=== PATIENT | female | born 1950 | race Caucasian/White ===

== ENCOUNTER 2023-12-15 17:39 | Inpatient (IN) | payer BC, MEDICARE ==
[~2023-12-15] VITALS: Ht 165.1 cm; Wt 70.8 kg
[2023-12-15] MEDS: NS 500 ML IV ONE (18:05)
[2023-12-15] MEDS: ONDANSETRON 4MG 2ML VIAL IV ONE (18:11)
[2023-12-15] MEDS: MORPHINE 4 MG/ML 1ML VIAL IV ONE ×2 (18:11→20:31)
[2023-12-15] MEDS: NS 1,000 ML IV SCH (18:12)
[2023-12-15] MEDS ORDERED: ISOVUE-370 76% 100ML VIAL As Ordered ONE (18:12)
[2023-12-15 18:28] LABS: BASO # 0.1 10^3/uL (0.0-0.2); BASO % 0.8 % (0.0-1.0); EOS # 0.1 10^3/uL (0.0-0.5); EOS % 1.4 % (0.0-3.0); HEMATOCRIT 43.5 % (36.0-47.0); HEMOGLOBIN 15.5 g/dl (12.0-15.5); LYMPH # 3.2 10^3/uL (1.5-5.0); LYMPH % 36.7 % (24.0-44.0); MEAN CORPUSCULAR HEMOGLOBIN 33.3 pg (27.0-33.0); MEAN CORPUSCULAR HGB CONC 35.6 g/dl (32.0-36.5); MEAN CORPUSCULAR VOLUME 93.5 fl (80.0-96.0); MONO # 0.6 10^3/uL (0.0-0.8); MONO % 6.8 % (2.0-8.0); NEUTROPHILS # 4.6 10^3/uL (1.5-8.5); NEUTROPHILS % 53.5 % (36.0-66.0); PLATELET COUNT, AUTOMATED 265 10^3/uL (150-450); RED BLOOD COUNT 4.65 10^6/uL (4.00-5.40); WHITE BLOOD COUNT 8.6 10^3/uL (4.0-10.0)
[2023-12-15 18:37] LABS: CK-MB VALUE MASS < 1.0 NG/ML (<3.6); LIPASE 31 U/L (12-53)
[2023-12-15 18:39] LABS: ALBUMIN 3.8 G/DL (3.2-5.2); ALKALINE PHOSPHATASE 110 U/L (46-116); ALT/SGPT 37 U/L (7.0-40); AST/SGOT 22 U/L (<34); BILIRUBIN,DIRECT 0.3 MG/DL (<0.4); BILIRUBIN,TOTAL 1.4 MG/DL (0.3-1.2); CPK CREATINE PHOSPHOKINASE 131 U/L (34-145); MB/CK RELATIVE INDEX 0.76 (< OR =4); TOTAL PROTEIN 6.9 G/DL (5.7-8.2)
[2023-12-15 18:51] LABS: INR 0.98; PROTHROMBIN TIME 12.7 SECONDS (12.5-14.5)
[2023-12-15] MEDS ORDERED: HOME MED LIST COMPLETE! XX SCH (20:25)
[2023-12-15] MEDS: PIPERACILLIN/TAZOBACTAM SOD 3.375 GM in D5W MINI-BAG PLUS 50 ML IV ONE (20:31)
[2023-12-15] MEDS: NS 1,000 ML IV ONE (20:31)
[2023-12-15 21:21] LABS: RSV AMPLIFICATION NEGATIVE (NEGATIVE)
[2023-12-15 21:45] LABS: BLOOD UREA NITROGEN 11 MG/DL (9-23); CARBON DIOXIDE LEVEL 23 MMOL/L (20-31); CHLORIDE LEVEL 103 MMOL/L (98-107); CREATININE FOR GFR 0.76 MG/DL (0.55-1.30); GLOMERULAR FILTRATION RATE > 60.0 (>39); GLUCOSE, FASTING 147 MG/DL (74-106); POTASSIUM SERUM 3.5 MMOL/L (3.5-5.1); SODIUM LEVEL 138 MMOL/L (136-145)
[2023-12-15] MEDS ORDERED: MORPHINE 2 MG/ML 1ML VIAL IV PRN ×2 (21:55)
[2023-12-15] MEDS ORDERED: ONDANSETRON 4MG 2ML VIAL IV PRN (21:55)
[2023-12-15] MEDS: PANTOPRAZOLE 40MG VIAL IV SCH (23:19)
[2023-12-15] MEDS: LR 1,000 ML IV SCH (23:19)
[2023-12-15 23:20] VITALS: BP 135/88; TEMP 96.8; O2SAT 95
[2023-12-15 23:37] VITALS: BP 128/88
[2023-12-16] MEDS: MULTIVITAMIN -ADULT INJECTION 10 ML, THIAMINE INJection 100 MG, FOLIC ACID 1 MG in NS 1... IV ONE (00:24)
[2023-12-16] MEDS: MAG SULF 1GM/100ML (MAG RUN) 1 GM in IV 1 EA IV ONE (02:03)
[2023-12-16] MEDS: PIPERACILLIN/TAZOBACTAM SOD 3.375 GM in D5W MINI-BAG PLUS 50 ML IV SCH (03:11)
[2023-12-16 04:47] VITALS: BP 124/80; TEMP 97.7; O2SAT 93
[2023-12-16 05:57] LABS: HEMOGLOBIN A1c 4.9 % (4.0-6.0)
[2023-12-16 05:58] LABS: HEMATOCRIT 37.9 % (36.0-47.0); MEAN CORPUSCULAR HEMOGLOBIN 33.2 pg (27.0-33.0); MEAN CORPUSCULAR HGB CONC 35.1 g/dl (32.0-36.5); MEAN CORPUSCULAR VOLUME 94.5 fl (80.0-96.0); PLATELET COUNT, AUTOMATED 212 10^3/uL (150-450); RED BLOOD COUNT 4.01 10^6/uL (4.00-5.40); WHITE BLOOD COUNT 7.4 10^3/uL (4.0-10.0)
[2023-12-16 06:00] VITALS: BP 124/80
[2023-12-16 06:02] LABS: HEMOGLOBIN 13.3 g/dl (12.0-15.5)
[2023-12-16 06:12] LABS: THYROXINE (T4) 4.2 UG/DL (4.5-10.9)
[2023-12-16 06:13] LABS: THYROID STIMULATING HORMONE 8.967 uIU/ML (0.55-4.78)
[2023-12-16 06:17] LABS: PROCALCITONIN <0.04 ng/ml
[2023-12-16 06:23] LABS: ALBUMIN 2.9 G/DL (3.2-5.2); ALKALINE PHOSPHATASE 76 U/L (46-116); ALT/SGPT 28 U/L (7.0-40); AST/SGOT 16 U/L (<34); BILIRUBIN,TOTAL 1.8 MG/DL (0.3-1.2); BLOOD UREA NITROGEN 9 MG/DL (9-23); CARBON DIOXIDE LEVEL 24 MMOL/L (20-31); CHLORIDE LEVEL 112 MMOL/L (98-107); CREATININE FOR GFR 0.72 MG/DL (0.55-1.30); GLOMERULAR FILTRATION RATE > 60.0 (>39); GLUCOSE, FASTING 113 MG/DL (74-106); MAGNESIUM LEVEL 2.3 MG/DL (1.8-2.4); POTASSIUM SERUM 3.9 MMOL/L (3.5-5.1); SODIUM LEVEL 140 MMOL/L (136-145); TOTAL PROTEIN 5.6 G/DL (5.7-8.2)
[2023-12-16 08:30] VITALS: BP 124/80
[2023-12-16] MEDS ORDERED: ENOXAPARIN 40MG/0.4ML SYRINGE (J1650 PER 10MG) SC SCH (09:00)
[2023-12-16] MEDS: ACETAMINOPHEN TAB 650MG DOSE (2X325MG) PO PRN (14:01)
[2023-12-16] MEDS ORDERED: CIPR-249 PO (14:59)
[2023-12-16] MEDS ORDERED: METR-265 PO (14:59)
[2023-12-16 16:45] LABS: FREE THYROXINE INDEX 1.6 % (1.3-4.8); T UPTAKE 38.4 % (22.5-37.0)
== END 2023-12-16 16:52 | disposition home or self-care (01) | DRG 392 ==
LOC: M ED 17:39 → M ED INP 21:41 → M MSPAV 23:11
PROVIDERS: ADMIT Family Medicine; ATTEND Internal Medicine Nephrology
DX: K52.9 Noninfective gastroenteritis and colitis, unspecified (principal); K56.609 Unspecified intestinal obstruction, unspecified as to partial versus complete obstruction; K76.0 Fatty (change of) liver, not elsewhere classified; E04.1 Nontoxic single thyroid nodule; I70.0 Atherosclerosis of aorta; K40.20 Bilateral inguinal hernia, without obstruction or gangrene, not specified as recurrent; M51.36 Other intervertebral disc degeneration, lumbar region; M16.0 Bilateral primary osteoarthritis of hip; A08.4 Viral intestinal infection, unspecified; K57.90 Diverticulosis of intestine, part unspecified, without perforation or abscess without bleeding

== ENCOUNTER 2024-06-19 13:53 | Inpatient (IN) | payer MEDICARE ==
[~2024-06-19] VITALS: Ht 167.6 cm; Wt 47.7 kg
[~2024-06-19 13:53] MED LIST: CIPR-249 PO; METR-265 PO
[2024-06-19] MEDS ORDERED: FLEEENE12 PR (14:01)
[2024-06-19 15:37] LABS: BASO % 0.3 % (0.0-1.0); EOS % 0.3 % (0.0-3.0); HEMATOCRIT 44.1 % (36.0-47.0); HEMOGLOBIN 15.3 g/dl (12.0-15.5); LYMPH # 1.4 10^3/uL (1.5-5.0); LYMPH % 10.1 % (24.0-44.0); MEAN CORPUSCULAR HEMOGLOBIN 32.8 pg (27.0-33.0); MEAN CORPUSCULAR HGB CONC 34.7 g/dl (32.0-36.5); MEAN CORPUSCULAR VOLUME 94.4 fl (80.0-96.0); MONO # 0.8 10^3/uL (0.0-0.8); MONO % 5.9 % (2.0-8.0); NEUTROPHILS # 11.4 10^3/uL (1.5-8.5); NEUTROPHILS % 82.9 % (36.0-66.0); PLATELET COUNT, AUTOMATED 237 10^3/uL (150-450); RED BLOOD COUNT 4.67 10^6/uL (4.00-5.40); WHITE BLOOD COUNT 13.8 10^3/uL (4.0-10.0)
[2024-06-19] MEDS ORDERED: ISOVUE-370 76% 100ML VIAL As Ordered ONE (15:48)
[2024-06-19] MEDS: MORPHINE 2 MG/ML 1ML VIAL IV ONE (15:52)
[2024-06-19] MEDS: ACETAMINOPHEN TAB 650MG DOSE (2X325MG) PO ONE (15:52)
[2024-06-19] MEDS: ONDANSETRON 4MG 2ML VIAL IV ONE (15:52)
[2024-06-19] MEDS: NS 1,000 ML IV ONE (15:52)
[2024-06-19 16:11] LABS: ALBUMIN 3.5 G/DL (3.2-5.2); BILIRUBIN,TOTAL 4.5 MG/DL (0.3-1.2); TOTAL PROTEIN 7.2 G/DL (5.7-8.2)
[2024-06-19] MEDS: PIPERACILLIN/TAZOBACTAM SOD 3.375 GM in D5W MINI-BAG PLUS 50 ML IV ONE (17:49)
[2024-06-19] MEDS: NS 1,000 ML IV SCH (18:25)
[2024-06-19 18:40] LABS: C REACTIVE PROTEIN QUANTITATIV 23.1 MG/DL (<1.0)
[2024-06-19 18:53] LABS: PROCALCITONIN 0.19 ng/ml
[2024-06-19] MEDS ORDERED: HOME MED LIST COMPLETE! XX SCH (18:55)
[2024-06-19] MEDS: KETOROLAC 30 MG/ML 1ML VIAL IV PRN (20:43)
[2024-06-19 21:30] VITALS: BP 105/75; TEMP 99.1; O2SAT 95
[2024-06-19 23:22] VITALS: O2SAT 95
[2024-06-20 00:30] VITALS: BP 107/74; TEMP 97.5; O2SAT 96
[2024-06-20] MEDS: PIPERACILLIN/TAZOBACTAM SOD 4.5 GM in D5W MINI-BAG PLUS 50 ML IV SCH (00:32)
[2024-06-20 03:59] VITALS: BP 106/71; TEMP 99.1; O2SAT 93
[2024-06-20 05:58] LABS: HEMATOCRIT 37.7 % (36.0-47.0); MEAN CORPUSCULAR HGB CONC 34.2 g/dl (32.0-36.5); MEAN CORPUSCULAR VOLUME 96.4 fl (80.0-96.0); PLATELET COUNT, AUTOMATED 190 10^3/uL (150-450); RED BLOOD COUNT 3.91 10^6/uL (4.00-5.40); WHITE BLOOD COUNT 9.5 10^3/uL (4.0-10.0)
[2024-06-20 06:04] LABS: HEMOGLOBIN 12.9 g/dl (12.0-15.5)
[2024-06-20 06:31] LABS: ALBUMIN 2.7 G/DL (3.2-5.2); ALKALINE PHOSPHATASE 80 U/L (46-116); ALT/SGPT 20 U/L (7.0-40); AST/SGOT 8 U/L (<34); BILIRUBIN,TOTAL 3.3 MG/DL (0.3-1.2); BLOOD UREA NITROGEN 7 MG/DL (9-23); CALCIUM LEVEL 8.1 MG/DL (8.3-10.6); CARBON DIOXIDE LEVEL 24 MMOL/L (20-31); CHLORIDE LEVEL 110 MMOL/L (98-107); CREATININE FOR GFR 0.75 MG/DL (0.55-1.30); GLOMERULAR FILTRATION RATE > 60.0 (>39); GLUCOSE, FASTING 97 MG/DL (74-106); POTASSIUM SERUM 3.8 MMOL/L (3.5-5.1); SODIUM LEVEL 139 MMOL/L (136-145); TOTAL PROTEIN 5.6 G/DL (5.7-8.2)
[2024-06-20] MEDS: ENOXAPARIN 40MG/0.4ML SYRINGE (J1650 PER 10MG) SC SCH (08:33)
[2024-06-20 12:00] VITALS: BP 120/77; TEMP 97.7; O2SAT 95
[2024-06-20] MEDS: ACETAMINOPHEN 500 MG TAB PO PRN (12:50)
[2024-06-20] MEDS: diphenhydrAMINE 50MG/ML VIAL IV STA (14:48)
[2024-06-20] MEDS: METOCLOPRAMIDE INJ 10MG/2ML VIAL IV ONE (14:49)
[2024-06-20] MEDS: ONDANSETRON 4MG 2ML VIAL IV PRN (18:41)
[2024-06-20] MEDS: MORPHINE 4 MG/ML 1ML VIAL IV PRN (18:42)
[2024-06-20 20:28] VITALS: BP 113/71; TEMP 100.8; O2SAT 92
[2024-06-20] MEDS: LACTOBACILLUS ACIDOPHILUS CAP (BACID) PO SCH (22:50)
[2024-06-21] VITALS (8 sets, daily range): BP systolic 110–125; BP diastolic 68–77; TEMP 98.1–102.1; O2SAT 91–96
[2024-06-21] MEDS: ACETAMINOPHEN TAB 650MG DOSE (2X325MG) PO ONE (01:44)
[2024-06-21 07:58] LABS: BASO % 0.2 % (0.0-1.0); EOS # 0.1 10^3/uL (0.0-0.5); EOS % 0.5 % (0.0-3.0); HEMATOCRIT 34.9 % (36.0-47.0); HEMOGLOBIN 12.2 g/dl (12.0-15.5); LYMPH # 1.1 10^3/uL (1.5-5.0); LYMPH % 10.8 % (24.0-44.0); MEAN CORPUSCULAR HEMOGLOBIN 33.2 pg (27.0-33.0); MEAN CORPUSCULAR VOLUME 95.1 fl (80.0-96.0); MONO # 0.7 10^3/uL (0.0-0.8); MONO % 7.1 % (2.0-8.0); NEUTROPHILS # 8.1 10^3/uL (1.5-8.5); NEUTROPHILS % 80.8 % (36.0-66.0); PLATELET COUNT, AUTOMATED 192 10^3/uL (150-450); RED BLOOD COUNT 3.67 10^6/uL (4.00-5.40); WHITE BLOOD COUNT 10.1 10^3/uL (4.0-10.0)
[2024-06-21 08:25] LABS: ALBUMIN 2.4 G/DL (3.2-5.2); ALKALINE PHOSPHATASE 99 U/L (46-116); ALT/SGPT 31 U/L (7.0-40); AST/SGOT 27 U/L (<34); BILIRUBIN,DIRECT 0.6 MG/DL (<0.4); BILIRUBIN,TOTAL 1.9 MG/DL (0.3-1.2); BLOOD UREA NITROGEN < 5 MG/DL (9-23); CALCIUM LEVEL 7.9 MG/DL (8.3-10.6); CARBON DIOXIDE LEVEL 24 MMOL/L (20-31); CHLORIDE LEVEL 110 MMOL/L (98-107); GLOMERULAR FILTRATION RATE > 60.0 (>39); GLUCOSE, FASTING 128 MG/DL (74-106); POTASSIUM SERUM 3.8 MMOL/L (3.5-5.1); SODIUM LEVEL 138 MMOL/L (136-145); TOTAL PROTEIN 5.6 G/DL (5.7-8.2)
[2024-06-21] MEDS: NS 1,000 ML IV SCH (10:09)
[2024-06-22 03:53] VITALS: BP 132/79; TEMP 98.2; O2SAT 91
[2024-06-22 05:57] LABS: BASO % 0.4 % (0.0-1.0); EOS # 0.1 10^3/uL (0.0-0.5); EOS % 0.6 % (0.0-3.0); HEMOGLOBIN 11.7 g/dl (12.0-15.5); LYMPH # 1.3 10^3/uL (1.5-5.0); LYMPH % 15.3 % (24.0-44.0); MEAN CORPUSCULAR HEMOGLOBIN 32.6 pg (27.0-33.0); MEAN CORPUSCULAR HGB CONC 34.4 g/dl (32.0-36.5); MEAN CORPUSCULAR VOLUME 94.7 fl (80.0-96.0); MONO # 0.6 10^3/uL (0.0-0.8); MONO % 7.6 % (2.0-8.0); NEUTROPHILS # 6.2 10^3/uL (1.5-8.5); NEUTROPHILS % 75.6 % (36.0-66.0); PLATELET COUNT, AUTOMATED 229 10^3/uL (150-450); RED BLOOD COUNT 3.59 10^6/uL (4.00-5.40); WHITE BLOOD COUNT 8.2 10^3/uL (4.0-10.0)
[2024-06-22 06:31] LABS: BLOOD UREA NITROGEN < 5 MG/DL (9-23); CALCIUM LEVEL 8.4 MG/DL (8.3-10.6); CARBON DIOXIDE LEVEL 26 MMOL/L (20-31); CHLORIDE LEVEL 110 MMOL/L (98-107); CREATININE FOR GFR 0.65 MG/DL (0.55-1.30); GLOMERULAR FILTRATION RATE > 60.0 (>39); GLUCOSE, FASTING 118 MG/DL (74-106); POTASSIUM SERUM 3.6 MMOL/L (3.5-5.1); SODIUM LEVEL 140 MMOL/L (136-145)
[2024-06-22 12:00] VITALS: BP 129/86; TEMP 98.9; O2SAT 93
[2024-06-22] MEDS ORDERED: AMOX875T2 PO (13:58)
[2024-06-22] MEDS ORDERED: ACET-683 PO (13:58)
[2024-06-22] MEDS ORDERED: RISATAB3 PO (13:58)
[2024-06-22] MEDS ORDERED: ONDA-282 PO (13:58)
[2024-06-22] MEDS ORDERED: OXYC1TAB23 PO (14:05)
[2024-06-22 19:25] VITALS: BP 133/88; TEMP 97.9; O2SAT 92
[2024-06-22] MEDS: AUGMENTIN 875 MG TAB PO SCH (21:18)
[2024-06-23 04:00] VITALS: BP 143/86; TEMP 97.7; O2SAT 94
== END 2024-06-23 11:50 | disposition home or self-care (01) | DRG 392 ==
LOC: M ED 13:53 → M ED INP 17:52 → M MSPAV 21:23
PROVIDERS: ADMIT Internal Medicine; ATTEND General Practice
DX: K57.20 Diverticulitis of large intestine with perforation and abscess without bleeding (principal); R51.9 Headache, unspecified; E80.6 Other disorders of bilirubin metabolism; R94.5 Abnormal results of liver function studies

== ENCOUNTER 2024-08-21 10:50 | Day surgery (SDC) | payer MEDICARE ==
[~2024-08-21] VITALS: Ht 167.6 cm; Wt 65.3 kg
[~2024-08-21 10:50] MED LIST changes: +ACET-683 PO; +AMOX875T2 PO; +FLEEENE12 PR; +ONDA-282 PO; +OXYC1TAB23 PO; +RISATAB3 PO; +THERTAB52 PO; +VITA200012 PO
[2024-08-21] MEDS: NS 250 ML IV ONE (11:22)
[2024-08-21] MEDS ORDERED: propofoL 200 MG/20 ML VIAL As Ordered ONE (12:45)
[2024-08-21 12:56] VITALS: TEMP 97.7
[2024-08-21 13:16] VITALS: BP 127/81; O2SAT 97
== END 2024-08-21 13:24 | disposition home or self-care (01) ==
LOC: M OPP 10:50
PROVIDERS: ATTEND Surgery
DX: K57.30 Diverticulosis of large intestine without perforation or abscess without bleeding (principal); K57.32 Diverticulitis of large intestine without perforation or abscess without bleeding; K64.0 First degree hemorrhoids; G43.909 Migraine, unspecified, not intractable, without status migrainosus; Z79.899 Other long term (current) drug therapy